=== PATIENT | male | born 1995 | race Caucasian/White ===

== ENCOUNTER 2016-09-29 12:17 | Emergency (ER) | payer MEDICAID ==
[2016-09-29 12:30] VITALS: RESP 16; TEMP 98.1; O2SAT 95
[2016-09-29] MEDS ORDERED: IPRATROPIUM/ALBUTEROL 3 ML DEYVIAL IH ONE (12:30)
--- NOTE | 2016-09-29 12:57 | UCPHY ---
H & P Time Seen by Provider: 09/29/16 12:56 Patient Type: Established HPI/ROS: CHIEF COMPLAINT: Difficulty breathing, back pain. HISTORY OF PRESENT ILLNESS: The patient is a 21-year-old male with a history of asthma who presents with difficulty breathing and pleuritic mid-back pain for the past few days. He admits associated cough. He was able to use his inhaler to alleviate his breathing troubles. He presents today because his father noticed severely increased work of breathing when he was asleep this morning. He does report having increased asthma difficulties with exercise over the past year. He denies ear pain, sore throat. REVIEW OF SYSTEMS: Constitutional: No fever, no chills. Eyes: No diplopia. ENT: No sore throat. Cardiovascular: No chest pain, no palpitations. Respiratory: As above. Gastrointestinal: No nausea vomiting or diarrhea. No abdominal pain. Genitourinary: No hematuria or frequency. Musculoskeletal: No back pain. Skin: No rashes. Neurological: No headache. 10 point ROS otherwise negative Past Medical/Surgical History: Asthma. Social History: Nonsmoker. Smoking Status: Never smoked Physical Exam: General Appearance: Alert, no distress. Afebrile. Normal phonation. No respiratory distress. Eyes: Pupils equal and round no pallor or injection. No icterus ENT, Mouth: Mucous membranes moist. Pharynx not erythematous and without exudate. TM Clear. Neck: No adenopathy. Supple. No JVD. Trachea in midline. Respiratory: There are no retractions, lungs are clear to auscultation. Cardiovascular: Regular rate and rhythm. Abdomen: Soft and nontender, no masses, bowel sounds normal. Femoral pulses equal. Neurological: Ox3. No motor weakness. Sensation intact. Gait nl. Skin: Warm and dry, no rashes. Musculoskeletal: No joint swelling. Extremities: No edema. Homans sign negative. No cords. Psychiatric: Patient is oriented X 3, there is no agitation Constitutional: Initial Vital Signs Temperature (C) 36.7 C 09/29/16 12:27 Heart Rate 71 09/29/16 12:27 Respiratory Rate 16 09/29/16 12:27 Blood Pressure 149/71 H 09/29/16 12:27 O2 Sat (%) 95 09/29/16 12:27 O2 Delivery Mode Room Air Allergies/Adverse Reactions: No Known Allergies Allergy (Verified 09/29/16 12:30) Home Medications: Medication Instructions Recorded Albuterol 09/29/16 Albuterol [Proventil Inhaler HFA 2 puffs IH QID #1 mdi 09/29/16 (*)] predniSONE [Prednisone] 30 mg PO BID #30 tablet 09/29/16 Medical Decision Making - Diagnostics Imaging: Chest x-ray reviewed by Dr. Galindo, radiology, reveals: Clear lungs. No pneumonia. ED Course/Re-evaluation: Chest x-ray ordered. 2 DuoNeb treatments administered. 1405: Reassessed patient. Discussed results of x-rays. He is feeling better after the second DuoNeb. He is comfortable going home. I answered all of his questions. He was given return precautions prior to discharge. - Data Points Medications Given: Discontinued Medications Albuterol (Proventil Neb) 3 ml IH EDNOW ONE Stop: 09/29/16 13:20 Last Admin: 09/29/16 13:35 Dose: 3 ml Albuterol/Ipratropium (Duoneb) 3 ml IH EDNOW ONE Stop: 09/29/16 12:31 Last Admin: 09/29/16 12:52 Dose: 3 ml Prednisone (Prednisone) 60 mg PO EDNOW ONE Stop: 09/29/16 13:21 Last Admin: 09/29/16 13:35 Dose: 60 mg Departure - Departure Disposition: Home, Routine, Self-Care Clinical Impression: Asthma exacerbation Condition: Good Instructions: Asthma (ED) Additional Instructions: Take the steroid as prescribed. Referrals: NONE *PRIMARY CARE P,. [Primary Care Provider] - As per Instructions Stand Alone Forms: Work Limited Duty Prescriptions: Albuterol [Proventil Inhaler HFA (*)] 2 puffs IH QID #1 mdi predniSONE [Prednisone] 30 mg PO BID #30 tablet - PQRS PQRS Measurement: Does not apply. Report Scribed for: Hernan Teran Report Scribed by: Kirk Stevenson Date of Report: 09/29/16 Time of Report: 12:57 Physician Review and Approval Statement: 09/29/16 12:57 Portions of this note were transcribed by a medical lab specialist. I personally performed a history, physical exam, medical decision making, and confirmed accuracy of information the transcribed note.
[2016-09-29] MEDS ORDERED: ALBUTEROL 3 ML DEYVIAL IH ONE (13:19)
[2016-09-29] MEDS ORDERED: predniSONE 20 MG TAB PO ONE (13:20)
[2016-09-29 14:37] VITALS: BP 132/70; PULSE 75
== END 2016-09-29 14:22 | disposition home or self-care (01) ==
LOC: CED 12:17
DX: J45.909 Unspecified asthma, uncomplicated (principal); M54.9 Dorsalgia, unspecified
CPT/HCPCS: 71020-PO; G0463-PO